=== PATIENT | female | born 1950 | race Caucasian/White ===

== ENCOUNTER 2016-11-04 00:23 | Emergency (ER) | payer OTHER ==
[~2016-11-04] VITALS: Ht 160 cm; Wt 110.7 kg
[2016-11-04 01:02] LABS: Basophils # (auto) 0.1 uL; Basophils % (auto) 1.1 % (0.0-2.0); Eosinophils # (auto) 0.2 uL; Eosinophils % (auto) 1.9 % (0.0-7.0); Hematocrit 37.3 % (36.0-46.0); Hemoglobin 12.5 g/dL (12.2-16.2); Lymphocytes # (auto) 3.3 uL; Mean Corpuscular Hemoglobin 29.8 pg (28.0-32.0); Mean Corpuscular Hgb Conc. 33.5 g/dL (32.0-36.0); Mean Corpuscular Volume 88.9 fL (80.0-100.0); Mean Platelet Volume 7.5 fL (6.9-10.8); Monocytes # (auto) 0.5 uL; Monocytes % (auto) 5.4 % (0.0-12.0); Neutrophils # (auto) 4.6 uL; Neutrophils % (auto) 53.6 % (37.0-80.0); Nucleated Red Blood Cells % 0.1 %; Platelet Count (auto) 270 10^3/uL (140-450); Red Cell Distribution Width 14.3 % (11.8-14.3); White Blood Cell 8.6 10^3/uL (4.4-10.8)
[2016-11-04 01:28] LABS: INR 0.92 (0.9-1.15); Partial Thromboplastin Time 27.6 sec (22.64-33.71)
[2016-11-04 01:40] LABS: Albumin 3.3 g/dL (3.4-5.0); Anion Gap 8 (5-15); Aspartate Aminotransferase 13 U/L (15-37); BUN/Creatinine Ratio 28.6; Blood Urea Nitrogen 26 mg/dL (7-18); Calcium 9.1 mg/dL (8.5-10.1); Carbon Dioxide 28 mmol/L (21-32); Chloride 108 mmol/L (98-107); GFR African American 80 mL/min; GFR Non-African American 66 mL/min; Glucose 128 mg/dL (74-106); Magnesium 2.2 mg/dL (1.6-2.6); Potassium 3.6 mmol/L (3.5-5.1); Sodium 144 mmol/L (136-145)
[2016-11-04 01:48] LABS: Alkaline Phosphatase 105 U/L (45-117); Bilirubin, Total 0.5 mg/dL (0.2-1.0); Total Protein 6.9 g/dL (6.4-8.2)
[2016-11-04 08:56] VITALS: BP 127/57
== END 2016-11-04 09:34 | disposition home or self-care (01) ==
LOC: ER 00:23
DX: R00.2 Palpitations (principal); E03.9 Hypothyroidism, unspecified; Z88.8 Allergy status to other drugs, medicaments and biological substances; M19.90 Unspecified osteoarthritis, unspecified site; K21.9 Gastro-esophageal reflux disease without esophagitis; I10 Essential (primary) hypertension; R42 Dizziness and giddiness
CPT/HCPCS: 36415; 71020; 80053; 83735; 84443; 84484; 85025; 85610; 85730; 93005

== ENCOUNTER 2018-06-22 00:14 | Emergency (ER) | payer OTHER ==
[~2018-06-22] VITALS: Ht 160 cm; Wt 111.6 kg
[2018-06-22 01:06] LABS: Basophils # (auto) 0.1 uL; Basophils % (auto) 0.8 % (0.0-2.0); Eosinophils # (auto) 0.1 uL; Eosinophils % (auto) 1.4 % (0.0-7.0); Hematocrit 38.9 % (36.0-46.0); Hemoglobin 12.8 g/dL (12.2-16.2); Lymphocytes # (auto) 3.1 uL; Lymphocytes % (auto) 36.7 % (10.0-50.0); Mean Corpuscular Hemoglobin 29.2 pg (28.0-32.0); Mean Corpuscular Hgb Conc. 32.8 g/dL (32.0-36.0); Mean Corpuscular Volume 88.9 fL (80.0-100.0); Monocytes # (auto) 0.5 uL; Monocytes % (auto) 6.1 % (0.0-12.0); Neutrophils # (auto) 4.7 uL; Platelet Count (auto) 309 10^3/uL (140-450); Red Blood Cells 4.37 10^6/uL (4.0-5.20); Red Cell Distribution Width 14.4 % (11.8-14.3); White Blood Cell 8.5 10^3/uL (4.4-10.8)
[2018-06-22 01:16] LABS: Alanine Aminotransferase 34 U/L (13-56); Albumin 3.6 g/dL (3.4-5.0); Anion Gap 9 (5-15); Aspartate Aminotransferase 16 U/L (15-37); BUN/Creatinine Ratio 22.9; Blood Urea Nitrogen 32 mg/dL (7-18); Calcium 9.2 mg/dL (8.5-10.1); Carbon Dioxide 25 mmol/L (21-32); Chloride 105 mmol/L (98-107); GFR African American 49 mL/min; GFR Non-African American 40 mL/min; Glucose 150 mg/dL (74-106); Potassium 3.6 mmol/L (3.5-5.1); Sodium 139 mmol/L (136-145)
[2018-06-22 01:20] LABS: Alkaline Phosphatase 100 U/L (45-117); Bilirubin, Total 0.3 mg/dL (0.2-1.0); Total Protein 7.3 g/dL (6.4-8.2)
[2018-06-22 04:53] VITALS: BP 121/75
== END 2018-06-22 05:24 | disposition home or self-care (01) ==
LOC: ER 00:19
DX: R00.2 Palpitations (principal); R06.02 Shortness of breath; T50.995A Adverse effect of other drugs, medicaments and biological substances, initial encounter; M19.90 Unspecified osteoarthritis, unspecified site; K21.9 Gastro-esophageal reflux disease without esophagitis; I10 Essential (primary) hypertension; Z88.8 Allergy status to other drugs, medicaments and biological substances; Z90.49 Acquired absence of other specified parts of digestive tract; Y92.89 Other specified places as the place of occurrence of the external cause
CPT/HCPCS: 36415; 71046; 80053; 84484; 85025; 93005

== ENCOUNTER 2018-07-05 11:45 | Emergency (ER) | payer OTHER ==
[~2018-07-05] VITALS: Ht 160 cm; Wt 111.1 kg
[2018-07-05] MEDS ORDERED: LORazepam 2MG/ML-1ML VIAL IV ONE (12:00)
[2018-07-05 12:27] LABS: Basophils # (auto) 0.1 uL; Basophils % (auto) 0.9 % (0.0-2.0); Eosinophils # (auto) 0.1 uL; Eosinophils % (auto) 0.9 % (0.0-7.0); Hematocrit 39.7 % (36.0-46.0); Hemoglobin 13.2 g/dL (12.2-16.2); Lymphocytes # (auto) 2.1 uL; Lymphocytes % (auto) 27.3 % (10.0-50.0); Mean Corpuscular Hemoglobin 29.7 pg (28.0-32.0); Mean Corpuscular Hgb Conc. 33.3 g/dL (32.0-36.0); Mean Corpuscular Volume 89.4 fL (80.0-100.0); Monocytes # (auto) 0.5 uL; Monocytes % (auto) 6.5 % (0.0-12.0); Neutrophils % (auto) 64.4 % (37.0-80.0); Nucleated Red Blood Cells % 0.1 %; Platelet Count (auto) 293 10^3/uL (140-450); Red Blood Cells 4.44 10^6/uL (4.0-5.20); Red Cell Distribution Width 14.2 % (11.8-14.3); White Blood Cell 7.7 10^3/uL (4.4-10.8)
[2018-07-05 12:42] LABS: INR 0.93 (0.9-1.15); Partial Thromboplastin Time 27.2 sec (23.78-33.04)
[2018-07-05 12:45] LABS: Albumin 3.7 g/dL (3.4-5.0); Anion Gap 5 (5-15); Blood Urea Nitrogen 22 mg/dL (7-18); Calcium 9.7 mg/dL (8.5-10.1); Carbon Dioxide 27 mmol/L (21-32); Chloride 108 mmol/L (98-107); Glucose 102 mg/dL (74-106); Magnesium 2.3 mg/dL (1.6-2.6); Potassium 3.8 mmol/L (3.5-5.1); Sodium 140 mmol/L (136-145)
[2018-07-05 12:50] LABS: Alanine Aminotransferase 26 U/L (13-56); Alkaline Phosphatase 101 U/L (45-117); Aspartate Aminotransferase 14 U/L (15-37); BUN/Creatinine Ratio 22.7; Bilirubin, Total 0.4 mg/dL (0.2-1.0); GFR African American 74 mL/min; GFR Non-African American 61 mL/min; Total Protein 7.2 g/dL (6.4-8.2)
[2018-07-05 14:45] VITALS: BP 123/70
== END 2018-07-05 17:24 | disposition home or self-care (01) ==
LOC: EDBD 11:45 → ER 11:45
DX: F41.9 Anxiety disorder, unspecified (principal); G89.29 Other chronic pain; M54.9 Dorsalgia, unspecified; M47.892 Other spondylosis, cervical region; I10 Essential (primary) hypertension; E11.9 Type 2 diabetes mellitus without complications; K21.9 Gastro-esophageal reflux disease without esophagitis; M19.90 Unspecified osteoarthritis, unspecified site; Z98.51 Tubal ligation status; Z90.49 Acquired absence of other specified parts of digestive tract; Z90.89 Acquired absence of other organs; Z86.73 Personal history of transient ischemic attack (TIA), and cerebral infarction without residual deficits; Z88.8 Allergy status to other drugs, medicaments and biological substances
CPT/HCPCS: 36415; 71045; 72125; 80053; 83735; 84484; 85025; 85610; 85730; 93005; 94761; 96374; 99284; J2060

== ENCOUNTER 2018-07-23 17:32 | Emergency (ER) | payer OTHER ==
[~2018-07-23] VITALS: Ht 160 cm; Wt 112.0 kg
[2018-07-23 21:12] VITALS: BP 139/75
[2018-07-23] MEDS ORDERED: ACETAMINOPHEN 325 MG TAB PO ONE (22:45)
== END 2018-07-23 23:09 | disposition home or self-care (01) ==
LOC: ER 17:33
DX: R51 Headache (principal); M19.90 Unspecified osteoarthritis, unspecified site; E11.9 Type 2 diabetes mellitus without complications; K21.9 Gastro-esophageal reflux disease without esophagitis; E78.5 Hyperlipidemia, unspecified; I10 Essential (primary) hypertension; Z86.73 Personal history of transient ischemic attack (TIA), and cerebral infarction without residual deficits; Z90.49 Acquired absence of other specified parts of digestive tract; Z98.51 Tubal ligation status
CPT/HCPCS: 70450

== ENCOUNTER 2018-11-14 13:48 | Emergency (ER) | payer OTHER ==
[~2018-11-14] VITALS: Ht 160 cm; Wt 112.0 kg
[2018-11-14 16:38] VITALS: BP 118/74
[2018-11-14] MEDS ORDERED: KETOROLAC TROMETH 60MG/2ML VIAL IM ONE (17:15)
== END 2018-11-14 18:08 | disposition home or self-care (01) ==
LOC: ER 13:48
DX: M54.2 Cervicalgia (principal); M54.5 Low back pain; G89.29 Other chronic pain; M19.90 Unspecified osteoarthritis, unspecified site; K21.9 Gastro-esophageal reflux disease without esophagitis; E78.5 Hyperlipidemia, unspecified; I10 Essential (primary) hypertension; Z88.8 Allergy status to other drugs, medicaments and biological substances; Z86.73 Personal history of transient ischemic attack (TIA), and cerebral infarction without residual deficits; Z90.49 Acquired absence of other specified parts of digestive tract; Z98.51 Tubal ligation status
CPT/HCPCS: 93005; 96372; 99283; J1885

== ENCOUNTER 2020-04-29 12:05 | Inpatient (IN) | payer OTHER ==
[~2020-04-29] VITALS: Ht 160 cm; Wt 105.3 kg
[2020-04-29] MEDS ORDERED: SODIUM CHLORIDE 0.9% 1,000 ML IV ONE (12:45)
[2020-04-29 13:05] LABS: Basophils # (auto) 0.1 10 ^3/uL (0-0.2); Basophils % (auto) 0.7 % (0.0-2.0); Eosinophils # (auto) 0.1 10 ^3/uL (0-0.8); Eosinophils % (auto) 1.4 % (0.0-7.0); Hematocrit 36.1 % (36.0-46.0); Hemoglobin 12.2 g/dL (12.2-16.2); Lymphocytes # (auto) 2.4 10 ^3/uL (0.4-5.4); Lymphocytes % (auto) 30.3 % (10.0-50.0); Mean Corpuscular Hemoglobin 30.2 pg (28.0-32.0); Mean Corpuscular Hgb Conc. 33.7 g/dL (32.0-36.0); Mean Corpuscular Volume 89.8 fL (80.0-100.0); Monocytes # (auto) 0.4 10 ^3/uL (0-1.3); Neutrophils % (auto) 62.6 % (37.0-80.0); Platelet Count (auto) 311 10^3/uL (140-450); Red Blood Cells 4.02 10^6/uL (4.0-5.20); Red Cell Distribution Width 13.8 % (11.8-14.3); White Blood Cell 7.9 10^3/uL (4.4-10.8)
[2020-04-29 13:24] LABS: Albumin 3.2 g/dL (3.4-5.0); Anion Gap 6 (5-15); Blood Urea Nitrogen 20 mg/dL (7-18); Calcium 9.2 mg/dL (8.5-10.1); Carbon Dioxide 27 mmol/L (21-32); Chloride 107 mmol/L (98-107); Glucose 168 mg/dL (74-106); Potassium 3.5 mmol/L (3.5-5.1); Sodium 140 mmol/L (136-145)
[2020-04-29 13:29] LABS: Alanine Aminotransferase 20 U/L (13-56); Alkaline Phosphatase 89 U/L (45-117); Aspartate Aminotransferase 15 U/L (15-37); BUN/Creatinine Ratio 15.7; Bilirubin, Total 0.3 mg/dL (0.2-1.0); GFR African American 54 mL/min; GFR Non-African American 45 mL/min; Total Protein 6.8 g/dL (6.4-8.2)
[2020-04-29 14:09] LABS: Urine Bacteria FEW /hpf (None Seen); Urine Blood Negative /uL (Negative); Urine Specific Gravity 1.008 (1.001-1.035); Urine WBC 3 /hpf (0 - 5)
[2020-04-29] MEDS ORDERED: cefTRIAXone 1GM/50ML D5W 50 ML IV ONE (15:15)
[2020-04-29] MEDS ORDERED: ONDANSETRON HCL 4 MG/2 ML VIAL IV PRN (16:15)
[2020-04-29] MEDS ORDERED: NITROGLYCERIN 0.4 MG SL TAB SL PRN (16:15)
[2020-04-29] MEDS ORDERED: HYDROcodone-ACET 5/325MG TAB PO PRN (16:15)
[2020-04-29] MEDS ORDERED: MORPHINE SULF INJ 2 MG/ML SYRINGE 1ML IV PRN ×2 (16:15)
[2020-04-29] MEDS ORDERED: LORA-655 PO (16:27)
[2020-04-29] MEDS: ACETAMINOPHEN 500 MG TAB PO PRN (16:31)
[2020-04-29 16:40] LABS: CRP High Sensitivity 0.59 mg/dL (< 0.3)
[2020-04-29] MEDS: LORazepam 0.5 MG TAB PO PRN (16:41)
[2020-04-29] MEDS ORDERED: PANT40T PO (18:07)
[2020-04-29] MEDS ORDERED: LISI-646 PO (18:07)
[2020-04-29] MEDS ORDERED: HYDR25TA5 PO (18:07)
[2020-04-29 21:00] VITALS: BP 145/72
[2020-04-29] MEDS ORDERED: LORazepam 2MG/ML-1ML VIAL IV PRN (22:00)
[2020-04-30 05:00] VITALS: BP 120/68
[2020-04-30] MEDS: LORazepam 0.5 MG TAB PO PRN (06:21)
[2020-04-30] MEDS: ACETAMINOPHEN 500 MG TAB PO PRN (06:22)
[2020-04-30 08:00] VITALS: BP 123/53
[2020-04-30 09:00] VITALS: BP 123/53
[2020-04-30] MEDS: FAMOTIDINE 20 MG TAB PO SCH (09:26)
[2020-04-30] MEDS: ASPirin 81 mg TAB PO SCH (09:26)
[2020-04-30] MEDS ORDERED: ASPirin-EC 81 mg tab PO SCH (10:00)
[2020-04-30] MEDS ORDERED: HCTZ 25 MG TAB PO ONE (11:15)
[2020-04-30] MEDS ORDERED: LORazepam 2MG/ML-1ML VIAL IV ONE (11:15)
[2020-04-30] MEDS ORDERED: LISINOPRIL 20 MG TAB PO ONE (11:15)
[2020-04-30 13:00] VITALS: BP 130/78
[2020-04-30 22:16] VITALS: BP 102/49
[2020-05-01 05:14] VITALS: BP 111/59
[2020-05-01 05:50] LABS: Basophils # (auto) 0.1 10 ^3/uL (0-0.2); Basophils % (auto) 0.7 % (0.0-2.0); Eosinophils # (auto) 0.1 10 ^3/uL (0-0.8); Eosinophils % (auto) 1.5 % (0.0-7.0); Hematocrit 36.4 % (36.0-46.0); Hemoglobin 12.4 g/dL (12.2-16.2); Lymphocytes # (auto) 3.2 10 ^3/uL (0.4-5.4); Lymphocytes % (auto) 39.2 % (10.0-50.0); Mean Corpuscular Hemoglobin 30.7 pg (28.0-32.0); Mean Corpuscular Hgb Conc. 34.1 g/dL (32.0-36.0); Monocytes # (auto) 0.5 10 ^3/uL (0-1.3); Monocytes % (auto) 6.2 % (0.0-12.0); Neutrophils # (auto) 4.3 10 ^3/uL (1.6-8.6); Neutrophils % (auto) 52.4 % (37.0-80.0); Nucleated Red Blood Cells % 0.1 %; Platelet Count (auto) 299 10^3/uL (140-450); Red Blood Cells 4.04 10^6/uL (4.0-5.20); Red Cell Distribution Width 14.2 % (11.8-14.3); White Blood Cell 8.1 10^3/uL (4.4-10.8)
[2020-05-01 06:08] LABS: BUN/Creatinine Ratio 22.1; Calcium 9.5 mg/dL (8.5-10.1)
[2020-05-01] MEDS: LORazepam 0.5 MG TAB PO PRN ×2 (06:47→14:33)
[2020-05-01 09:00] VITALS: BP 95/54
[2020-05-01] MEDS: ASPirin 81 mg TAB PO SCH (09:33)
[2020-05-01] MEDS: FAMOTIDINE 20 MG TAB PO SCH (09:33)
[2020-05-01] MEDS: ACETAMINOPHEN 500 MG TAB PO PRN (09:34)
[2020-05-01] MEDS ORDERED: LISINOPRIL 20 MG TAB PO SCH (10:00)
[2020-05-01] MEDS ORDERED: HCTZ 25 MG TAB PO SCH (10:00)
[2020-05-01 13:00] VITALS: BP 95/48
[2020-05-01 15:42] VITALS: BP 95/54
[2020-05-01 17:00] VITALS: BP 98/58
== END 2020-05-01 17:24 | disposition home or self-care (01) | DRG 552 ==
LOC: EDBD 12:05 → ER 12:05 → TELE 16:06 → TELE-EAST 20:21 → TELE-CENTR 04-30 14:47
PROVIDERS: ADMIT Nurse Practitioner Acute Care; ATTEND Internal Medicine Nephrology
DX: M47.22 Other spondylosis with radiculopathy, cervical region (principal); N17.9 Acute kidney failure, unspecified; N39.0 Urinary tract infection, site not specified; Z68.41 Body mass index [BMI] 40.0-44.9, adult; R51.9 Headache, unspecified; E11.21 Type 2 diabetes mellitus with diabetic nephropathy; M79.7 Fibromyalgia; M48.02 Spinal stenosis, cervical region; M06.9 Rheumatoid arthritis, unspecified; E11.22 Type 2 diabetes mellitus with diabetic chronic kidney disease; I12.9 Hypertensive chronic kidney disease with stage 1 through stage 4 chronic kidney disease, or unspecified chronic kidney disease; G56.00 Carpal tunnel syndrome, unspecified upper limb; K21.9 Gastro-esophageal reflux disease without esophagitis; M62.838 Other muscle spasm; Z20.822 Contact with and (suspected) exposure to COVID-19; R53.1 Weakness; E66.01 Morbid (severe) obesity due to excess calories; E78.5 Hyperlipidemia, unspecified; F41.0 Panic disorder [episodic paroxysmal anxiety]; Z79.82 Long term (current) use of aspirin; Z81.8 Family history of other mental and behavioral disorders; Z85.3 Personal history of malignant neoplasm of breast; Z86.73 Personal history of transient ischemic attack (TIA), and cerebral infarction without residual deficits; Z88.8 Allergy status to other drugs, medicaments and biological substances; N18.2 Chronic kidney disease, stage 2 (mild)
CPT/HCPCS: 36415; 70450; 70551; 71046; 72125; 80048; 80053; 80061; 81001; 83036; 83735; 84484; 85025; 85652; 86141; 87426; 93005; 93306; 93886; 96361; 96365; G0378; J0696

== ENCOUNTER → 2021-06-12 | Emergency (ER) | payer OTHER ==
[~2021-06-12] VITALS: Ht 160 cm; Wt 106.6 kg
[~2021-06-12] MED LIST: LORA-655 PO; PANT40T PO
[2021-06-12 15:43] LABS: Basophils # (auto) 0.1 10 ^3/uL (0-0.2); Basophils % (auto) 0.6 % (0.0-2.0); Eosinophils # (auto) 0.1 10 ^3/uL (0-0.8); Eosinophils % (auto) 0.8 % (0.0-7.0); Hematocrit 41.6 % (36.0-46.0); Hemoglobin 13.8 g/dL (12.2-16.2); Lymphocytes # (auto) 3.1 10 ^3/uL (0.4-5.4); Lymphocytes % (auto) 31.6 % (10.0-50.0); Mean Corpuscular Hemoglobin 30.1 pg (28.0-32.0); Mean Corpuscular Hgb Conc. 33.2 g/dL (32.0-36.0); Mean Corpuscular Volume 90.9 fL (80.0-100.0); Monocytes # (auto) 0.6 10 ^3/uL (0-1.3); Monocytes % (auto) 6.1 % (0.0-12.0); Neutrophils % (auto) 60.9 % (37.0-80.0); Nucleated Red Blood Cells % 0.2 %; Red Blood Cells 4.58 10^6/uL (4.0-5.20); Red Cell Distribution Width 14.1 % (11.8-14.3); White Blood Cell 9.8 10^3/uL (4.4-10.8)
[2021-06-12 15:45] LABS: Albumin 3.2 g/dL (3.4-5.0); Calcium 9.4 mg/dL (8.5-10.1); Potassium 4.6 mmol/L (3.5-5.1)
[2021-06-12 15:50] LABS: Bilirubin, Total 0.3 mg/dL (0.2-1.0); Total Protein 6.8 g/dL (6.4-8.2)
[2021-06-12 19:58] VITALS: BP 145/72
[2021-06-12 20:05] LABS: Urine Bacteria NONE SEEN /hpf (None Seen); Urine Blood 1+ /uL (Negative); Urine Specific Gravity 1.011 (1.001-1.035); Urine WBC <1 /hpf (0 - 5)
== END | disposition home or self-care (01) ==
LOC: ER 14:24
DX: D25.9 Leiomyoma of uterus, unspecified (principal); N93.9 Abnormal uterine and vaginal bleeding, unspecified; I10 Essential (primary) hypertension; E78.5 Hyperlipidemia, unspecified; K21.9 Gastro-esophageal reflux disease without esophagitis; Z90.49 Acquired absence of other specified parts of digestive tract; Z90.89 Acquired absence of other organs; Z79.899 Other long term (current) drug therapy; Z88.8 Allergy status to other drugs, medicaments and biological substances
CPT/HCPCS: 36415; 76830; 76856; 80053; 81001; 85025; 86850; 86900; 86901

== ENCOUNTER 2025-01-03 12:21 | Inpatient (IN) | payer OTHER ==
[~2025-01-03] VITALS: Ht 160 cm; Wt 97.2 kg
--- NOTE | 2025-01-03 13:04 | ED.PDOC ---
History of Present Illness HPI Comments 74 y/o obese F is BIBA from private residence for c/c of headache and weakness and tingling. Significant history for anxiety, asthma, HLD, HTN, and breast cancer. Per EMS personnel report, patient called, endorsing on sudden onset of symptoms after feeding her chickens and then sitting down for a few minutes, this morning. Pain is localized to the posterior side of her head and is commented to radiate down her neck. Weakness and tingling sensations is localized to the her entire left-side. Patient endorses on taking 1x Ativan prescription medication with assistance from her neighbors prior to calling EMS. On scene, patient was hyperventilating on scene, with vitals within normal limit s. No reported recent ailments, injuries, or further pertinent events or history. She denies having any chest pain, shortness of breath, facial droop, vision or speech changes, or further acute symptoms. Chief Complaint: Anxiety Time Seen by MD: 12:23 Primary Care Provider: [facility] Reviewed Notes: Nurses Notes, House Mover Helper Notes, Medications, Allergies Allergies: Coded Allergies: Statins (Verified Allergy, Severe, RASH, 11/24/15) Home Meds Reported Medications Pantoprazole Sodium Sesquihydr (Pantoprazole Sodium) 40 Mg Tab, 1 TAB PO DAILY 04/29/20 Lorazepam (Ativan) 0.5 Mg Tab, 0.25 MG PO TID PRN for ANXIETY, TAB 04/29/20 Information Source: Patient, Emergency Med Personnel Mode of Arrival: EMS Severity: Moderate Timing: Hours Duration: Since onset Prehospital treatment: 12 Lead EKG, Accucheck, Shrink Pit Supervisor, Other (Calming techniques ) Past Medical History PAST MEDICAL HISTORY: Anxiety, Arthritis, Cancer (breast cancer ), GERD, High Lipids, HTN, TIA Surgical History: Appendectomy, BTL, Cholecystectomy, Tonsillectomy, Tubal Ligation PRICE ECONOMIST History: No Pertinent PRICE ECONOMIST History Family History Family History: Reviewed,noncontributory to illness Social History Smoker: Non-Smoker Alcohol: Occasionally Drugs: Denies Drug Use Lives In: Home Constitutional: denies: chills, diaphoresis, fatigue, fever, malaise, sweats, weakness, others EENTM: denies: blurred vision, double vision, ear bleeding, ear discharge, ear drainage, ear pain, ear ringing, eye pain, eye redness, hearing loss, mouth pain, mouth swelling, nasal discharge, nose bleeding, nose congestion, nose pain, photophobia, tearing, throat pain, throat swelling, voice changes, others Respiratory: denies: cough, hemoptysis, orthopnea, SOB at rest, shortness of breath, SOB with excertion, stridor, wheezing, others Cardiovascular: denies: chest pain, dizzy spells, diaphoresis, Dyspnea on exertion, edema, irregular heart beat, left arm pain, lightheadedness, palpitations, PND, syncope, others Gastrointestinal: denies: abdomen distended, abdominal pain, blood streaked bowels, constipated, diarrhea, dysphagia, difficulty swallowing, hematemesis, melena, nausea, poor appetite, poor fluid intake, rectal bleeding, rectal pain, vomiting, others Genitourinary: denies: abnormal vagina bleeding, burning, dyspareunia, dysuria, flank pain, frequency, hematuria, incontinence, pain, , vagina discharge, urgency, others Neurological: reports: headache, tingling, weakness; denies: dizziness, fainting, left sided numbness, left sided weakness, numbness, paresthesia, pre- existing deficit, right sided numbness, right sided weakness, seizure, speech problems, tremors, others Musculoskeletal: denies: back pain, gout, joint pain, joint swelling, muscle pain, muscle stiffness, neck pain, others Integumetry: denies: bruises, change in color, change in hair/nails, dryness, laceration, lesions, lumps, rash, wounds, others Allergic/Immunocompromised: denies: Difficulty Healing, Frequent Infections, Hives, Itching, others Hematologic/Lymphatic: denies: anemia, blood clots, easy bleeding, easy bruising, swollen glands, others Endocrine: denies: excessive hunger, excessive sweating, excessive thirst, excessive urination, flushing, intolerance to cold, intolerance to heat, unexplained weight gain, unexplained weight loss, others Psychiatric: denies: anxiety, bipolar disorder, depression, hopeless, panic disorder, schizophrenia, sleepless, suicidal, others All Other Systems: Reviewed and Negative Physical Exam General Appearance: Moderate Distress HEENT: Normal ENT Inspection, Pharynx Normal, TMs Normal Neck: Full Range of Motion, Non-Tender, Normal, Normal Inspection Respiratory: Chest Non-Tender, Lungs Clear, No Accessory Muscle Use, No Respiratory Distress, Normal Breath Sounds Cardiovascular: No Edema, No JVD, No Murmur, No Gallop, Normal Peripheral Pulses, Regular Rate/Rhythm Breast Exam: Deferred Gastrointestinal: No Organomegaly, Non Tender, No Pulsatile Mass, Normal Bowel Sounds, Soft Genitalia: Deferred Pelvic: Deferred Rectal: Deferred Extremities: No calf tenderness, Normal capillary refill, Normal inspection, Normal range of motion, Non-tender, No pedal edema Musculoskeletal : Apperance: Normal Neurologic: resident intern II-XII nml as Tested, Motor Weakness, Normal Affect, Normal Mood, No Sensory Deficits Cerebellar Function: Normal Reflexes: Normal Skin: Dry, Pallor, Warm Lymphatic: No Adenopathy Was a procedure done? Was a procedure done?: No Differential Dx Considerations may include: anxiety, panic attack, dehydration, electrolyte imbalance, tension headache, migraines, CVA/TIA, intracranial hemorrhaging, among others. X-Ray, Labs, Meds, VS Vital Signs Date Time Temp Pulse Resp B/P (MAP) Pulse Ox O2 Delivery O2 Flow Rate FiO2 01/03/25 13:35 97.4 64 17 139/75 (96) 96 97.4 01/03/25 12:23 98.6 78 22 141/81 97 98.6 Lab Test 01/03/25 13:10 Range/Units White Blood Count 7.5 4.4-10.8 10^3/uL Red Blood Count 4.48 4.0-5.20 10^6/uL Hemoglobin 13.4 12.2-16.2 g/dL Hematocrit 40.2 36.0-46.0 % Mean Corpuscular Volume 89.7 80.0-100.0 fL Mean Corpuscular Hemoglobin 30.0 28.0-32.0 pg Mean Corpuscular Hemoglobin Concent 33.4 32.0-36.0 g/dL Red Cell Distribution Width 14.6 H 11.8-14.3 % Platelet Count 281 140-450 10^3/uL Mean Platelet Volume 7.9 6.9-10.8 fL Neutrophils (%) (Auto) 61.7 37.0-80.0 % Lymphocytes (%) (Auto) 30.8 10.0-50.0 % Monocytes (%) (Auto) 5.6 0.0-12.0 % Eosinophils (%) (Auto) 0.9 0.0-7.0 % Basophils (%) (Auto) 1.0 0.0-2.0 % Neutrophils # (Auto) 4.6 1.6-8.6 10 ^3/uL Lymphocytes # (Auto) 2.3 0.4-5.4 10 ^3/uL Monocytes # (Auto) 0.4 0-1.3 10 ^3/uL Eosinophils # (Auto) 0.1 0-0.8 10 ^3/uL Basophils # (Auto) 0.1 0-0.2 10 ^3/uL Nucleated Red Blood Cells 0.1 % Sodium Level 142 136-145 mmol/L Potassium Level 3.8 3.5-5.1 mmol/L Chloride Level 106 98-107 mmol/L Carbon Dioxide Level 23 20-31 mmol/L Anion Gap 13 5-15 Blood Urea Nitrogen 10 9-23 mg/dL Creatinine 0.85 0.550-1.02 mg/dL Glomerular Filtration Rate Calc 73 >90 mL/min BUN/Creatinine Ratio 11.8 10.0-20.0 Serum Glucose 112 H 74-106 mg/dL Calcium Level 10.1 8.7-10.4 mg/dL [place] [id number] Ph: [phone] DIAGNOSTIC IMAGING Diagnostic Imaging Report : [id number] Signed PATIENT: JENARO GONZALEZ ACCT: [id number] UNIT: [id number] : 1950 LOC: ER ROOM / BED: / AGE / SEX: 74 / F ADM STATUS: REG ER SERVICE 1238 ORDERING PHYSICIAN: MARTINA CASTRO MD PROCEDURE(s): HWOCT - HEAD WITHOUT CONTRAST REASON: weakness ORDER NUMBER(s): [id number], ACCESSION NUMBER(s): [id number] CT HEAD WITHOUT CONTRAST Indication: weakness EXAM DATE: 01/03/2025 12:47 PM COMPARISON: HEAD WITHOUT CONTRAST on DOS: 04/29/20 TECHNIQUE: CT of the head without intravenous contrast. RADIATION DOSE: CTDIvol: 58.57 mGy, DLP: 1051.62 mGy*cm FINDINGS: There is no intracranial hemorrhage. There is no extra-axial fluid, mass, mass effect or midline shift. The ventricles are midline and normal in size. Basilar cisterns are patent. Mild volume loss. Old right basal ganglia lacunar infarcts. Mild periventricular and subcortical white matter chronic microvascular ischemic changes. The paranasal sinuses and mastoids are well-pneumatized. Imaged portion of the orbits are unremarkable. IMPRESSION: No intracranial hemorrhage or mass effect. Old right basal ganglia lacunar infarcts. Mild chronic microvascular ischemic changes. ATED BY: YOLY GAFFNEY MD DICTATED DATE/TIME: 01/03/251314 SIGNED BY: YOLY GAFFNEY MD SIGNED DATE/TIME: 01/03/251314 CC: IV Hep-Lock is being established The CBC and chemistry panel are within normal limits The patient is still having intractable headache. The patient was given tramadol without any relief The patient is being admitted Images Reviewed?: Images reviewed and evaluated by me Time of 1ST Reevaluation: 12:53 Reevaluation 1ST: Unchanged Patient Education/Counseling: Diagnosis, Treatment, Need For Follow Up Family Education/Counseling: No Family Present SEPSIS Sepsis Screen Physician Orders Head Without Contrast (01/03/25 12:38) Urinalysis (01/03/25 12:38) Tramadol Hcl (Ultram) (01/03/25 14:15) Vital Signs Date Time Temp Pulse Resp B/P (MAP) Pulse Ox O2 Delivery O2 Flow Rate FiO2 01/03/25 13:35 97.4 64 17 139/75 (96) 96 97.4 01/03/25 12:23 98.6 78 22 141/81 97 98.6 Laboratory Tests Test 01/03/25 13:10 White Blood Count 7.5 10^3/uL (4.4-10.8) Departure 1 Departure Time of Disposition: 14:17 Impression: Primary Impression: Generalized weakness Additional Impression: Intractable headache Qualified Codes: R51.9 - Headache, unspecified Disposition: 09 ADMITTED INPATIENT Admit to: [facility] Condition: Fair Critical Care Note Critical Care Time?: No Stability Stability form required: Yes Unstable for transfer: Telemetry monitoring (Telemetry monitoring required), ED Physician Assesment (Clinical assesment) Heart Score Heart Score: Heart Score Response (Comments) Value History N/A 0 EKG N/A 0 Age N/A 0 Risk Factors N/A 0 Troponin N/A 0 Total 0 I personally scribed for MARTINA CASTRO MD ([email or web address]) on 01/03/25 at 13:04. Electronically submitted by Kana Lemus ([email or web address]). I personally scribed for MARTINA CASTRO MD ([email or web address]) on 01/03/25 at 13:25. Electronically submitted by Kana Lemus ([email or web address]). MARTINA CASTRO MD Jan 03, 2025 13:04
--- NOTE | 2025-01-03 13:13 | DVH ---
CT HEAD WITHOUT CONTRAST Indication: weakness EXAM DATE: 01/03/2025 12:47 PM COMPARISON: HEAD WITHOUT CONTRAST on DOS: 04/29/20 TECHNIQUE: CT of the head without intravenous contrast. RADIATION DOSE: CTDIvol: 58.57 mGy, DLP: 1051.62 mGy*cm FINDINGS: There is no intracranial hemorrhage. There is no extra-axial fluid, mass, mass effect or midline shift. The ventricles are midline and normal in size. Basilar cisterns are patent. Mild volume loss. Old right basal ganglia lacunar infarcts. Mild periventricular and subcortical white matter chronic micr ovascular ischemic changes. The paranasal sinuses and mastoids are well-pneumatized. Imaged portion of the orbits are unremarkable. IMPRESSION: No intracranial hemorrhage or mass effect. Old right basal ganglia lacunar infarcts. Mild chronic microvascular ischemic changes.
[2025-01-03 13:24] LABS: Hematocrit 40.2 % (36.0-46.0); Hemoglobin 13.4 g/dL (12.2-16.2); Mean Corpuscular Hemoglobin 30.0 pg (28.0-32.0); Mean Corpuscular Volume 89.7 fL (80.0-100.0); Nucleated Red Blood Cells % 0.1 %
[2025-01-03 13:28] LABS: Chloride 106 mmol/L (98-107); Potassium 3.8 mmol/L (3.5-5.1); Sodium 142 mmol/L (136-145)
[2025-01-03 13:29] LABS: Anion Gap 13 (5-15); Carbon Dioxide 23 mmol/L (20-31)
[2025-01-03 13:30] LABS: Calcium 10.1 mg/dL (8.7-10.4)
[2025-01-03 13:34] LABS: BUN/Creatinine Ratio 11.8 (10.0-20.0); Blood Urea Nitrogen 10 mg/dL (9-23)
[2025-01-03 13:36] LABS: Glucose 112 mg/dL (74-106)
[2025-01-03 15:58] LABS: Urine Protein, UAD Negative (Negative)
[2025-01-03 18:05] VITALS: PULSE 65; RESP 19; O2SAT 100
--- NOTE | 2025-01-03 20:59 | DVHHPRES ---
History of Present Illness Resident Creating Document: JAN GILL RESIDENT History of Present Illness 74-year-old female with a PMH of anxiety disorder, panic disorder, asthma, hypertension, hyperlipidemia, breast cancer (diagnosed in 2004, S/P partial mastectomy and radiation, tamoxifen for 5 years), possible TIA event, chronic pain syndrome, has come with chief complaints of numbness and weakness in the left side of her body. Patient reports that she has a herniated disc in her neck, mid and lower back, which causes usual tingling, but today while walking back to her home after feeding her chicken, she felt weakness in her left leg which began to wobble and was followed by warm flushing sensation of her entire body followed by chills, and numbness as well as weakness in the entire left side of the body. She states that she tried to ice her neck but the symptoms worsened and 0.5 Ativan calmed her a bit but the weakness repained for an hour. On inquiry, she reports this event to be different from the anxiety attacks she has had in the past. She denies any slurring of speech, drooping of face, Chest pain, shortness of breath, palpitations, or headache. On inquiry, patient states that she might have had a TIA event in the past, as she was told by her doctor via CT scan that she might have had some ischemic changes in the past. Vitals on admission were stable temp 97.8, HR 65, RR 22, BP 141/81 mmHg and SpO2 99% in room air. On initial evaluation, there was no drooping of the face, speech was clear, sensory motor examination was intact. CT head showed no intracranial hemorrhage/mass, old right basal ganglia lacunar infarcts; mild chronic microvascular ischemic changes. We are admitting the patient for further workup and management. PMH: As stated above PSH: Partial mastectomy Family history: Reviewed, noncontributory to the management of this case Social history: Patient denies ever smoking, drinking alcohol or abusing illicit drugs, uses CBD ointment for back pain Allergies: Statins PCP: Nurse bel Valderrama in [facility] Code status: Full code Review of Systems Constitutional: Yes: Other; No: Fever, Chills, Sweats, Weakness, Malaise Eyes: No: Pain, Vision change, Conjunctivae inflammation, Eyelid inflammation, Other, Redness ENT: No: Ear pain, Ear discharge, Nose pain, Nose discharge, Nose congestion, Mouth pain, Mouth swelling, Throat pain, Throat swelling, Other Respiratory: No: Cough, Dry, Shortness of breath, SOB with excertion, Wheezing, Hemoptysis, Pleuritic Pain, Sputum, Wheezing, Other Cardiovascular: No: Chest Pain, Palpitations, Orthopnea, Paroxysmal Noc. Dyspnea, Edema, Lt Headedness, Other Gastrointestinal: No: Nausea, Vomiting, Abdominal Pain, Diarrhea, Constipation, Melena, Hematochezia, Other Genitourinary: No Dysuria, No Frequency, No Incontinence, No Hematuria, No Retention, No Other Musculoskeletal: No: other, neck pain, shoulder pain, arm pain, back pain, hand pain, leg pain, foot pain Skin: No: Rash, Lesions, Jaundice, Bruising, Other Neurological: Weakness, Numbness, Other; No: Incoordination, Change in speech, Confusion, Seizures Allergies: Coded Allergies: Statins (Verified Allergy, Severe, RASH, 11/24/15) Exam Vital Signs Vital Signs Date Time Temp Pulse Resp B/P (MAP) Pulse Ox O2 Delivery O2 Flow Rate FiO2 01/03/25 18:05 97.8 65 19 142/81 (101) 100 97.8 01/03/25 18:05 Room Air* 0 21 Exam General Appearance: Alert, Oriented X3, Cooperative, Not in acute distress HEENT: Atraumatic, Mucous membranes moist/pink Respiratory: Clear to auscultation, Normal air movement, No added sounds Cardiovascular: Regular rate, Normal S1, Normal S2, No murmurs Abdominal: Active bowel sounds, Soft, no distention, no tenderness Extremities: No edema, Normal pulses, No tenderness/swelling Skin: No Significant rash, except past surgical scars Neuro: Normal speech, sensorimotor deficits none , power 5/5 on all extremities Psych/Mental Status: Mental status NL, slightly anxious Labs/Xrays Labs Test 01/03/25 14:14 01/03/25 13:10 Range/Units Urine Color Light-yellow Yellow Urine Clarity Clear Clear Urine pH 6.5 5.0-9.0 Urine Specific [place] 1.010 1.001-1.035 Urine Protein Negative Negative Urine Ketones Negative Negative Urine Blood Negative Negative /uL Urine Nitrite Negative Negative Urine Bilirubin Negative Negative Urine Urobilinogen Normal Negative mg/dL Urine Leukocyte Esterase Negative Negative /uL Urine RBC 1 0 - 4 /hpf Urine Microscopic WBC 1 0-5 /HPF Urine Squamous Epithelial Cells Few <5 /hpf Urine Bacteria None seen None Seen /hpf Urine Glucose Normal Normal mg/dL White Blood Count 7.5 4.4-10.8 10^3/uL Red Blood Count 4.48 4.0-5.20 10^6/uL Hemoglobin 13.4 12.2-16.2 g/dL Hematocrit 40.2 36.0-46.0 % Mean Corpuscular Volume 89.7 80.0-100.0 fL Mean Corpuscular Hemoglobin 30.0 28.0-32.0 pg Mean Corpuscular Hemoglobin Concent 33.4 32.0-36.0 g/dL Red Cell Distribution Width 14.6 H 11.8-14.3 % Platelet Count 281 140-450 10^3/uL Mean Platelet Volume 7.9 6.9-10.8 fL Neutrophils (%) (Auto) 61.7 37.0-80.0 % Lymphocytes (%) (Auto) 30.8 10.0-50.0 % Monocytes (%) (Auto) 5.6 0.0-12.0 % Eosinophils (%) (Auto) 0.9 0.0-7.0 % Basophils (%) (Auto) 1.0 0.0-2.0 % Neutrophils # (Auto) 4.6 1.6-8.6 10 ^3/uL Lymphocytes # (Auto) 2.3 0.4-5.4 10 ^3/uL Monocytes # (Auto) 0.4 0-1.3 10 ^3/uL Eosinophils # (Auto) 0.1 0-0.8 10 ^3/uL Basophils # (Auto) 0.1 0-0.2 10 ^3/uL Nucleated Red Blood Cells 0.1 % Sodium Level 142 136-145 mmol/L Potassium Level 3.8 3.5-5.1 mmol/L Chloride Level 106 98-107 mmol/L Carbon Dioxide Level 23 20-31 mmol/L Anion Gap 13 5-15 Blood Urea Nitrogen 10 9-23 mg/dL Creatinine 0.85 0.550-1.02 mg/dL Glomerular Filtration Rate Calc 73 >90 mL/min BUN/Creatinine Ratio 11.8 10.0-20.0 Serum Glucose 112 H 74-106 mg/dL Calcium Level 10.1 8.7-10.4 mg/dL SEPSIS Sepsis Screen Date sepsis recognized/suspect: Jan 03, 2025 Time Sepsis recognized/suspect: 1804 Recent Procedure: No On Antibiotic Therapy: No Respiratory Rate >20: No Heart Rate >90: No Temp<36 C (96.8 F) or >38.3 C: No SBP <90 or MAP <65 mmHG: No New Acute Mental Status Change: No Is the patient on CPAP, BIPAP,: No Physician Orders Heplock Iv (01/03/25 ) Admit (01/03/25 20:46) Code Status (01/03/25 20:46) Ondansetron Hcl (Zofran) (01/03/25 21:00) Complete Blood Count (01/04/25 04:00) Comprehensive Metabolic Panel (01/04/25 04:00) Cardiac Diet-2gna,Lofat,Lochol (01/04/25 Breakfast) Pt Request For Service (01/03/25 20:46) Echo 2d Mode Cardiac Dop (01/03/25 20:46) Condition: Unstable (01/03/25 20:46) Lovenox 40mg (01/03/25 21:00) Electrocardigram (01/03/25 20:46) Carotid Duplx W Color Dop (01/03/25 20:46) Aspirin Tablet (01/03/25 21:00) Aspirin Tablet (01/04/25 10:00) Lisinopril Tablet (Zestril Tablet) (01/04/25 10:00) Albuterol Medneb (Ventolin Medneb) (01/03/25 21:00) Albuterol Medneb (Ventolin Medneb) (01/03/25 21:00) Hydrocodone-Acet 5/325mg Tab ([place] 5/32 (01/03/25 21:00) Hydrocodone-Acet 5/325mg Tab ([place] 5/32 (01/03/25 21:00) Baclofen Tablet (Liorisal Tablet) (01/03/25 21:00) Baclofen Tablet (Liorisal Tablet) (01/03/25 21:00) Acetaminophen Tablet (Tylenol Tablet) (01/03/25 21:00) Hydromorphone Injection (Dilaudid Inject (01/03/25 21:00) * Neurology Consult (01/03/25 20:46) Magnesium (01/03/25 20:46) Hepatic Panel (01/03/25 20:46) Vital Signs Date Time Temp Pulse Resp B/P (MAP) Pulse Ox O2 Delivery O2 Flow Rate FiO2 01/03/25 18:05 97.8 65 19 142/81 (101) 100 97.8 01/03/25 18:05 65 19 100 Room Air* 0 21 01/03/25 13:35 97.4 64 17 139/75 (96) 96 97.4 Laboratory Tests Test 01/03/25 13:10 White Blood Count 7.5 10^3/uL (4.4-10.8) Medications Medications Dose Ordered Sig/[place] Route Start Time Stop Time Status Last Admin Dose Admin Tramadol HCl 50 mg ONCE ONCE PO 01/03/25 14:15 01/03/25 14:16 DC 01/03/25 14:20 50 MG Assessment/Plan Assessment/Plan #Possible TIA event # Ruled out acute stroke - EKG - tele monitor - echo - ABCD 2 score 3 - aspirin 325 mg p.o. once and 81 mg p.o. daily - atorvastatin on hold as patient is allergic to statins - physical therapy - neurology consult - CT head shows: no intracranial hemorrhage/mass, old right basal ganglia lacunar infarcts; mild chronic microvascular ischemic changes. - carotid Doppler shows no hemodynamically significant stenosis noted in the right or left carotid system - UA normal - UDS - IV Zofran 4 mg q.4 PRN - IV NS 0.9% - magnesium 2.0 - TSH 2.16 - BNP 18.99 - chest x-ray no acute cardiopul abnormality #Hypertensive heart disease with poss diastolic dysfunction - continue home medication lisinopril 20 mg p.o. daily #Asthma, not under acute exacerbation -albuterol 2.5 mg q.4 PRN #Chronic back pain - tramadol HCl 50 mg p.o. once - baclofen 10 mg p.o. daily - pain management with: Acetaminophen 650 mg q.6 PRN for mild pain [place] 5/325 mg q.4 PRN for moderate pain Dilaudid 0.25 mg q.4 PRN for severe pain #Morbid obesity, BMI 38.3 kg/m2 - patient counseled extensively regarding need of weight loss, exercise, dietary modification and healthy lifestyle for of 8 minutes #History of anxiety and panic disorder -monitor DVT prophylaxis: Lovenox 40 mg SC daily Diet: cardiac diet Goals of care discussed with the patient for more than 27 minutes: Full code status Case discussed with Dr. Rangel, patient and nurse. Plan discussed with: Patient My Orders Orders - JAN GILL RESIDENT Procedure Category Date Status Time Admit ADMIT 01/03/25 Transmitted 20:46 Code Status CODE 01/03/25 Transmitted 20:46 Ondansetron Hcl PHA 01/03/25 Transmitted (Zofran) 21:00 Complete Blood Count LAB 01/04/25 Verified 04:00 Comprehensive LAB 01/04/25 Verified Metabolic Panel 04:00 Cardiac DIET 01/04/25 Transmitted Diet-2gna,Lofat,Lochol Breakfast Pt Request For Service PT 01/03/25 Transmitted 20:46 Echo 2d Mode Cardiac US 01/03/25 Transmitted DOP 20:46 Condition: Unstable MARILUZ 01/03/25 Transmitted 20:46 Lovenox 40mg PHA 01/03/25 Transmitted 21:00 Electrocardigram EKG 01/03/25 Transmitted 20:46 Carotid Duplx W Color US 01/03/25 Transmitted DOP 20:46 Aspirin Tablet PHA 01/03/25 Transmitted 21:00 Aspirin Tablet PHA 01/04/25 Transmitted 10:00 Lisinopril Tablet PHA 01/04/25 Transmitted (Zestril Tablet) 10:00 Albuterol Medneb PHA 01/03/25 Transmitted (Ventolin Medneb) 21:00 Albuterol Medneb PHA 01/03/25 Transmitted (Ventolin Medneb) 21:00 Hydrocodone-Acet PHA 01/03/25 Transmitted 5/325mg Tab ([place] 21:00 Hydrocodone-Acet PHA 01/03/25 Transmitted 5/325mg Tab ([place] 21:00 Baclofen Tablet PHA 01/03/25 Transmitted (Liorisal Tablet) 21:00 Baclofen Tablet PHA 01/03/25 Transmitted (Liorisal Tablet) 21:00 Acetaminophen Tablet PHA 01/03/25 Transmitted (Tylenol Tablet) 21:00 Hydromorphone PHA 01/03/25 Transmitted Injection (Dilaudid 21:00 * Neurology Consult CONS 01/03/25 Transmitted 20:46 Magnesium LAB 01/03/25 Logged 20:46 Hepatic Panel LAB 01/03/25 Logged 20:46 Date of Service: Jan 04, 2025 Billing Provider: TUCKER RANGEL MD Common Visit Codes: [id number] INP/OBS CARE (HIGH) Secondary Visit Codes: [id number] CARE PLAN 30 MINUTES JAN GILL RESIDENT Jan 03, 2025 20:59 TRE GUEVARA RESIDENT Jan 04, 2025 04:53
[2025-01-03] MEDS ORDERED: ONDANSETRON HCL 4 MG/2 ML VIAL IV PRN (21:00)
[2025-01-03] MEDS ORDERED: ALBUTEROL SULF 2.5 MG/0.5ML(0.5%) NEB SOLN NEB PRN (21:00)
[2025-01-03] MEDS ORDERED: HYDROcodone-ACET 5/325MG TAB PO PRN (21:00)
[2025-01-03] MEDS ORDERED: HYDROmorphone HCL 2 MG/ML VL/or syr IV PRN (21:00)
[2025-01-03] MEDS ORDERED: ACETAMINOPHEN 325 MG TAB PO PRN (21:00)
[2025-01-03 21:04] VITALS: O2SAT 98
[2025-01-03] MEDS: ALBUTEROL SULF 2.5 MG/0.5ML(0.5%) NEB SOLN ONE (21:05)
[2025-01-03] MEDS: BACLOFEN 10 MG TAB PO ONE (21:15)
[2025-01-03] MEDS: HYDROcodone-ACET 5/325MG TAB PO ONE (21:16)
[2025-01-03 21:19] LABS: Alanine Aminotransferase 15.0 U/L (7-40); Albumin 4.4 g/dL (3.2-4.8); Alkaline Phosphatase 114.0 U/L (46-116); Bilirubin, Direct 0.1 mg/dL (<0.3); Magnesium 2.0 mg/dL (1.6-2.6); Total Protein 7.1 g/dL (5.7-8.2)
[2025-01-03 21:20] LABS: Bilirubin, Total 0.5 mg/dL (0.2-1.0)
[2025-01-03 21:42] VITALS: PULSE 62; RESP 16; TEMP 98; O2SAT 98
--- NOTE | 2025-01-03 22:03 | DVH ---
EXAM: US CAROTID DUPLX W COLOR DOP INDICATION: possible tia event, eval for stenosis COMPARISON: None TECHNIQUE: Grayscale, pulsed Doppler and color Doppler ultrasound examination of the carotid and vertebral artery systems bilaterally was performed. Study is done in accordance with NASCET criteria. FINDINGS: [RIGHT SIDE]: The peak systolic velocities are 54 cm/s in the distal CCA, 70 cm/s in the ICA. ICA/CCA ratio is 1.3. There is appropriate antegrade flow in the right vertebral artery. [LEFT SIDE]: The peak systolic velocities are 56 cm/s in the distal CCA, 85 cm/s in the ICA. ICA/CCA ratio is 1.5. There is appropriate antegrade flow in the left vertebral artery. IMPRESSION: 1. No hemodynamically significant stenosis noted in the right carotid system. No hemodynamically significant stenosis noted in the left carotid system.
[2025-01-03] MEDS: ALBUTEROL SULF 2.5 MG/0.5ML(0.5%) NEB SOLN NEB ONE (22:47)
[2025-01-03 22:59] VITALS: BP 141/69; PULSE 53; RESP 17; RESP 18; TEMP 97.7; O2SAT 97
[2025-01-03 23:00] VITALS: BP 141/69; PULSE 56; RESP 17; TEMP 97.7; O2SAT 96
[2025-01-03] MEDS: ENOXAPARIN SOD 40 MG/0.4 ML SYRINGE SC SCH (23:32)
[2025-01-04] VITALS (12 sets, daily range): BP systolic 110–142; BP diastolic 43–77; PULSE 53–65; RESP 16–18; TEMP 97.6–98.4; O2SAT 95–98
[2025-01-04] MEDS ORDERED: MELO7.5T7 PO (01:14)
[2025-01-04] MEDS: SODIUM CHLORIDE 0.9% 1,000 ML IV ONE (02:37)
--- NOTE | 2025-01-04 02:46 | DVH ---
CHEST RADIOGRAPH Indication: Shortness of breath Technique: 1 view Comparison: 04/29/2020 FINDINGS: Lines and Tubes: External leads. Lungs/Pleura: No focal consolidation, pleural effusion or pneumothorax. Cardiomediastinum: Unremarkable. Other: No acute osseous abnormality. IMPRESSION: 1. No acute cardiopulmonary abnormality.
[2025-01-04 04:36] LABS: Hematocrit 35.5 % (36.0-46.0); Hemoglobin 11.9 g/dL (12.2-16.2); Mean Corpuscular Hemoglobin 30.2 pg (28.0-32.0); Mean Corpuscular Volume 89.8 fL (80.0-100.0); Nucleated Red Blood Cells % 0.1 %
[2025-01-04 04:56] LABS: Alanine Aminotransferase 12 U/L (7-40); Alkaline Phosphatase 94 U/L (46-116); Anion Gap 8 (5-15); BUN/Creatinine Ratio 16.0 (10.0-20.0); Blood Urea Nitrogen 12 mg/dL (9-23); Calcium 9.4 mg/dL (8.7-10.4); Carbon Dioxide 26 mmol/L (20-31); Glucose 86 mg/dL (74-106); Potassium 3.8 mmol/L (3.5-5.1); Sodium 143 mmol/L (136-145)
[2025-01-04 04:57] LABS: Total Protein 5.7 g/dL (5.7-8.2)
[2025-01-04 04:58] LABS: Albumin 3.5 g/dL (3.2-4.8); Bilirubin, Total 0.7 mg/dL (0.2-1.0)
[2025-01-04 05:05] LABS: Chloride 109 mmol/L (98-107)
[2025-01-04] MEDS ORDERED: [UNRECOGNIZED DRUG - CODE] PO (07:34)
[2025-01-04] MEDS ORDERED: MAGN100T9 PO (07:56)
[2025-01-04] MEDS ORDERED: METH-1181 PO (07:56)
[2025-01-04] MEDS ORDERED: OMEG1400 PO (07:56)
[2025-01-04] MEDS ORDERED: THEA100C PO (07:56)
[2025-01-04] MEDS ORDERED: CHOL20007 PO (07:56)
[2025-01-04] MEDS ORDERED: POM (07:56)
[2025-01-04] MEDS ORDERED: LISI20TA56 PO (07:56)
[2025-01-04] MEDS ORDERED: LORA-1121 PO (07:58)
[2025-01-04] MEDS: ASPirin-EC 81 mg tab PO SCH (09:11)
[2025-01-04] MEDS: BACLOFEN 10 MG TAB PO PRN (09:11)
[2025-01-04] MEDS: LISINOPRIL 20 MG TAB PO SCH (09:12)
--- NOTE | 2025-01-04 13:23 | DVHPN2 ---
Subjective no weakness Reviewed: H&P Changes from previous H/P or p: No Changes Eyes: No Pain, No Vision change, No Conjunctivae inflammation, No Eyelid inflammation, No Other, No Redness ENT: No Ear pain, No Ear discharge, No Nose pain, No Nose discharge, No Nose congestion, No Mouth pain, No Mouth swelling, No Throat pain, No Throat swelling, No Other Cardiovascular: No Chest Pain, No Palpitations, No Orthopnea, No Paroxysmal Noc. Dyspnea, No Edema, No Lt Headedness, No Other Respiratory: No Cough, No Dry, No Shortness of breath, No SOB with excertion, No Wheezing, No Hemoptysis, No Pleuritic Pain, No Sputum, No Other Gastrointestinal: No Nausea, No Vomiting, No Abdominal Pain, No Diarrhea, No Constipation, No Melena, No Hematochezia, No Other Genitourinary: No Dysuria, No Frequency, No Incontinence, No Hematuria, No Retention, No Other Musculoskeletal: No other, No neck pain, No shoulder pain, No arm pain, No back pain, No hand pain, No leg pain, No foot pain Skin: No Rash, No Lesions, No Jaundice, No Bruising, No Other Objective Vitals Vital Signs Date Time Temp Pulse Resp B/P (MAP) Pulse Ox O2 Delivery O2 Flow Rate FiO2 01/04/25 13:00 98.1 60 16 129/60 (83) 98 98.1 01/04/25 10:00 Room Air* 0 21 Intake/Output Intake and Output 01/04/25 07:00 Intake Total 1000 ml Balance 1000 ml IV Total 1000 ml General Appearance: Alert, Oriented X3 HEENT: Atraumatic Cardiovascular: Regular rate, Normal S1, Normal S2 Abdomen: Normal bowel sounds Medications Current Medications Medications Dose Ordered Sig/[place] Route Start Time Stop Time Status Last Admin Dose Admin Ondansetron HCl 4 mg Q4HP PRN IV 01/03/25 21:00 Enoxaparin Sodium 40 mg DAILY SC 01/03/25 23:00 01/04/25 09:13 40 MG Lisinopril 20 mg DAILY PO 01/04/25 10:00 01/04/25 09:12 20 MG Albuterol 2.5 mg Q6HPRN PRN NEB 01/03/25 21:00 Acetaminophen/ Hydrocodone Bitart 1 tab Q4HPRN PRN PO 01/03/25 21:00 Baclofen 10 mg Q8HP PRN PO 01/03/25 21:00 01/04/25 09:11 10 MG Acetaminophen 650 mg Q4HP PRN PO 01/03/25 21:00 Hydromorphone HCl 0.25 mg Q6HPRN PRN IV 01/03/25 21:00 Aspirin 81 mg DAILY PO 01/04/25 10:00 01/04/25 09:11 81 MG Laboratory Results Laboratory Tests 01/04/25 03:49 Chemistry Test 01/04/25 03:49 Albumin 3.5 g/dL (3.2-4.8) Calcium Level 9.4 mg/dL (8.7-10.4) Total Protein 5.7 g/dL (5.7-8.2) Cardiac Markers Test 01/03/25 13:38 B-Type Natriuretic Peptide 18.99 pg/mL (0-100) LFT Test 01/04/25 03:49 Alanine Aminotransferase (ALT) 12 U/L (7-40) Alkaline Phosphatase 94 U/L (46-116) Aspartate Amino Transferase (AST) 15 U/L (13-40) Total Bilirubin 0.7 mg/dL (0.2-1.0) HgA1c, TSH Test 01/03/25 13:38 Thyroid Stimulating Hormone (TSH) 2.16 uIU/mL (0.55-4.78) Urinalysis Test 01/03/25 14:14 Urine Color Light-yellow (Yellow) Urine Clarity Clear (Clear) Urine pH 6.5 (5.0-9.0) Urine Specific [place] 1.010 (1.001-1.035) Urine Protein Negative (Negative) Urine Ketones Negative (Negative) Urine Blood Negative /uL (Negative) Urine Nitrite Negative (Negative) Urine Bilirubin Negative (Negative) Urine Urobilinogen Normal mg/dL (Negative) Urine Leukocyte Esterase Negative /uL (Negative) Urine RBC 1 /hpf (0 - 4) Urine Microscopic WBC 1 /HPF (0-5) Urine Squamous Epithelial Cells Few /hpf (<5) Urine Bacteria None seen /hpf (None Seen) Urine Glucose Normal mg/dL (Normal) Assessment/Plan Assessment/Plan #Possible TIA event # Ruled out acute stroke Order MRI brain and C spine Pending neuro eval aspirin and statin #Hypertensive heart disease with poss diastolic dysfunction - continue home medication lisinopril 20 mg p.o. daily #Asthma, not under acute exacerbation -albuterol 2.5 mg q.4 PRN #Chronic back pain - tramadol HCl 50 mg p.o. once - baclofen 10 mg p.o. daily - pain management with: Acetaminophen 650 mg q.6 PRN for mild pain [place] 5/325 mg q.4 PRN for moderate pain Dilaudid 0.25 mg q.4 PRN for severe pain #Morbid obesity, BMI 38.3 kg/m2 - patient counseled extensively regarding need of weight loss, exercise, dietary modification and healthy lifestyle for of 8 minutes #History of anxiety and panic disorder -monitor Plan discussed with: Patient Date of Service: Jan 04, 2025 Billing Provider: ELVIS MENEZES MD Common Visit Codes: [id number] INP/OBS CARE(HIGH) ELVIS MENEZES MD Jan 04, 2025 13:23
--- NOTE | 2025-01-04 15:46 | DVH ---
PROCEDURE: MRI BRAIN HEAD WO CONTRAST INDICATION: TIA EXAM DATE: 01/04/2025 02:46 PM COMPARISON: CT HEAD WITHOUT CONTRAST on DOS: 01/03/25, BRAIN HEAD WO CONTRAST on DOS: 04/30/20, HEAD WITHOUT CONTRAST on DOS: 04/29/20 TECHNIQUE: MRI of the brain without intravenous contrast. FINDINGS: Diffusion weighted images of the brain demonstrate no evidence of acute infarction. There is no evidence of acute intracranial hemorrhage, extra-axial collection, mass effect, midline shift, herniation or hydrocephalus. Small old lacunar infarcts in the right basal ganglia. There are few scattered T2 signal hyperintensities in the periventricular white matter, nonspecific, likely related to chronic small-vessel ischemic disease. The ventricles, sulci and cisterns appear age appropriate. There are no signal abnormalities on the susceptibility weighted sequences. The major vascular flow voids are present. The visualized paranasal sinuses and mastoid air cells are clear. The surrounding soft tissues and osseous structures are unremarkable. IMPRESSION: No acute intracranial abnormality. Few scattered chronic small-vessel ischemic changes Old right basal ganglion lacunar infarcts.
[2025-01-04] MEDS ORDERED: LORazepam 0.5 MG TAB PO PRN (16:00)
[2025-01-04 16:17] LABS: Amphetamine Screen, Urine Neg (NEGATIVE); Barbiturate Scree,Urine Neg (NEGATIVE); Opiate Scree,Urine Neg (NEGATIVE); Phencyclidine Screen, Urine Neg (NEGATIVE)
[2025-01-04 16:18] LABS: Benzodiazephine Screen, Urine Neg (NEGATIVE); Cannabinoid Screen, Urine Neg (NEGATIVE); Cocaine Screen, Urine Neg (NEGATIVE)
--- NOTE | 2025-01-04 17:27 | DVH ---
PROCEDURE: MRI cervical spine without IV contrast. INDICATION: neck pain EXAM DATE: 01/04/2025 03:04 PM COMPARISON: US CAROTID DUPLX W COLOR DOP on DOS: 01/03/25, CAROTID DUPLX W COLOR DOP on DOS: 04/29/20, CERVICAL WITHOUT CONTRAST on DOS: 04/29/20 TECHNIQUE: MRI cervical spine without intravenous contrast. FINDINGS: No acute fracture or malalignment in the cervical spine. The bone marrow signal is unremarkable. The cervical medullary junction is unremarkable. The spinal cord is normal in caliber and signal characteristics. No spinal cord edema. Normal vertebral artery flow voids are noted. The soft tissues are unremarkable. C2-C3: Unremarkable. C3-C4: Unremarkable. C4-C5: Unremarkable. C5-C6: Unremarkable. C6-C7: Broad-base disc bulge and disc osteophyte complex which indents the ventral thecal sac. No cord compression. There is bilateral uncovertebral hypertrophy. Mild spinal canal stenosis. No foraminal stenoses. C7-T1: Unremarkable. IMPRESSION: Degenerative changes at C6-C7 with mild spinal canal stenosis. No cord compression or cord edema.
--- NOTE | 2025-01-04 21:31 | DVH ---
EXAM: MRI MRI NECK W OUT CONTRAST INDICATION: neck pain TECHNIQUE: Multiplanar, multisequence imaging of the cervical spine without contrast. COMPARISON: MRI CERVICAL WO CONTRAST on DOS: 01/04/25 FINDINGS: [ANATOMY]: Cervical lordosis is maintained. [BONES]: The vertebral bodies are normal in height, alignment, and marrow signal. [CERVICAL CORD]: The cervical cord is normal in signal and morphology. [DISCS]: Diffuse disc desiccation. disc herniations as detailed below [FACETS]: [id number] bilateral facet arthropathy of the cervical spine [OTHER]: There is no prevertebral soft tissue swelling. The visualized paraspinal soft tissues are normal. [C2-C3]: Unremarkable. [C3-C4]: Broad-based posterior disc protrusion measuring 2-3 mm with bilateral uncovertebral spurring. Trace ligamentum flavum buckling. [C4-C5]: 2 mm central disc protrusion with effacement of the ventral thecal sac [C5-C6]: Unremarkable. [C6-C7]: Mild intervertebral disc height loss with circumferential disc bulge and posterior disc osteophyte complex measuring 3 mm. Bilateral uncovertebral spurring. Contact with the ventral aspect of the cervical cord with slight anterior contour concavity [C7-T1]: Unremarkable. IMPRESSION: 1. Multilevel degenerative change of the cervical spine with disc herniations and uncovertebral spurring as detailed above. 2. No significant central canal narrowing. 3. No abnormal cervical cord signal. HS:Y
[2025-01-05 01:00] VITALS: BP 122/62; PULSE 61; RESP 18; TEMP 97.6; O2SAT 95
[2025-01-05 05:00] VITALS: BP 159/86; PULSE 70; RESP 18; TEMP 97.2; O2SAT 96
[2025-01-05 08:00] VITALS: PULSE 57; PULSE 60; RESP 20; O2SAT 95
[2025-01-05 09:00] VITALS: BP 128/75; PULSE 57; RESP 20; TEMP 97.9; O2SAT 95
[2025-01-05 10:00] VITALS: O2SAT 95
[2025-01-05] MEDS ORDERED: EZET-10 PO (11:04)
[2025-01-05] MEDS ORDERED: ASPI-543 PO (11:04)
[2025-01-05 11:45] VITALS: BP 128/75; PULSE 62; RESP 20; TEMP 98.8; O2SAT 95
--- NOTE | 2025-01-05 13:03 | DVHDS2 ---
Discharge Summary Date of Admission Jan 03, 2025 at 20:46 Date of Discharge: Jan 05, 2025 Labs/Diagnostic Data: Laboratory Results Test 01/04/25 03:49 01/03/25 21:57 01/03/25 14:14 01/03/25 13:38 White Blood Count 7.1 10^3/uL (4.4-10.8) Red Blood Count 3.95 10^6/uL (4.0-5.20) Hemoglobin 11.9 g/dL (12.2-16.2) Hematocrit 35.5 % (36.0-46.0) Mean Corpuscular Volume 89.8 fL (80.0-100.0) Mean Corpuscular Hemoglobin 30.2 pg (28.0-32.0) Mean Corpuscular Hemoglobin Concent 33.6 g/dL (32.0-36.0) Red Cell Distribution Width 14.6 % (11.8-14.3) Platelet Count 252 10^3/uL (140-450) Mean Platelet Volume 7.8 fL (6.9-10.8) Neutrophils (%) (Auto) 51.8 % (37.0-80.0) Lymphocytes (%) (Auto) 38.3 % (10.0-50.0) Monocytes (%) (Auto) 7.4 % (0.0-12.0) Eosinophils (%) (Auto) 1.9 % (0.0-7.0) Basophils (%) (Auto) 0.6 % (0.0-2.0) Neutrophils # (Auto) 3.7 10 ^3/uL (1.6-8.6) Lymphocytes # (Auto) 2.7 10 ^3/uL (0.4-5.4) Monocytes # (Auto) 0.5 10 ^3/uL (0-1.3) Eosinophils # (Auto) 0.1 10 ^3/uL (0-0.8) Basophils # (Auto) 0 10 ^3/uL (0-0.2) Nucleated Red Blood Cells 0.1 % Sodium Level 143 mmol/L (136-145) Potassium Level 3.8 mmol/L (3.5-5.1) Chloride Level 109 mmol/L (98-107) Carbon Dioxide Level 26 mmol/L (20-31) Anion Gap 8 (5-15) Blood Urea Nitrogen 12 mg/dL (9-23) Creatinine 0.75 mg/dL (0.550-1.02) Glomerular Filtration Rate Calc 85 mL/min (>90) BUN/Creatinine Ratio 16.0 (10.0-20.0) Serum Glucose 86 mg/dL (74-106) Calcium Level 9.4 mg/dL (8.7-10.4) Total Bilirubin 0.7 mg/dL (0.2-1.0) Aspartate Amino Transferase (AST) 15 U/L (13-40) Alanine Aminotransferase (ALT) 12 U/L (7-40) Alkaline Phosphatase 94 U/L (46-116) Total Protein 5.7 g/dL (5.7-8.2) Albumin 3.5 g/dL (3.2-4.8) POC Glucose 112 mg/dl (70-106) Urine Color Light-yellow (Yellow) Urine Clarity Clear (Clear) Urine pH 6.5 (5.0-9.0) Urine Specific [place] 1.010 (1.001-1.035) Urine Protein Negative (Negative) Urine Ketones Negative (Negative) Urine Blood Negative /uL (Negative) Urine Nitrite Negative (Negative) Urine Bilirubin Negative (Negative) Urine Urobilinogen Normal mg/dL (Negative) Urine Leukocyte Esterase Negative /uL (Negative) Urine RBC 1 /hpf (0 - 4) Urine Microscopic WBC 1 /HPF (0-5) Urine Squamous Epithelial Cells Few /hpf (<5) Urine Bacteria None seen /hpf (None Seen) Urine Glucose Normal mg/dL (Normal) Urine Opiates Screen Neg (NEGATIVE) Urine Fentanyl Screen Neg (NEGATIVE) Urine Barbiturates Screen Neg (NEGATIVE) Urine Phencyclidine Screen Neg (NEGATIVE) Urine Amphetamines Screen Neg (NEGATIVE) Urine Benzodiazepines Screen Neg (NEGATIVE) Urine Cocaine Screen Neg (NEGATIVE) Urine Cannabinoids Screen Neg (NEGATIVE) B-Type Natriuretic Peptide 18.99 pg/mL (0-100) Thyroid Stimulating Hormone (TSH) 2.16 uIU/mL (0.55-4.78) Test 01/03/25 13:10 Magnesium Level 2.0 mg/dL (1.6-2.6) Direct Bilirubin 0.1 mg/dL (<0.3) Other Laboratory Tests 01/04/25 03:49 Brief Hx & Hospital Course: 74-year-old female with a PMH of anxiety disorder, panic disorder, asthma, hypertension, hyperlipidemia, breast cancer (diagnosed in 2004, S/P partial mastectomy and radiation, tamoxifen for 5 years), possible TIA event, chronic pain syndrome, has come with chief complaints of numbness and weakness in the left side of her body. Patient reports that she has a herniated disc in her neck, mid and lower back, which causes usual tingling, but today while walking back to her home after feeding her chicken, she felt weakness in her left leg which began to wobble and was followed by warm flushing sensation of her entire body followed by chills, and numbness as well as weakness in the entire left side of the body. She states that she tried to ice her neck but the symptoms worsened and 0.5 Ativan calmed her a bit but the weakness repained for an hour. On inquiry, she reports this event to be different from the anxiety attacks she has had in the past. She denies any slurring of speech, drooping of face, Chest pain, shortness of breath, palpitations, or headache. On inquiry, patient states that she might have had a TIA event in the past, as she was told by her doctor via CT scan that she might have had some ischemic changes in the past. Vitals on admission were stable temp 97.8, HR 65, RR 22, BP 141/81 mmHg and SpO2 99% in room air. On initial evaluation, there was no drooping of the face, speech was clear, sensory motor examination was intact. CT head showed no intracranial hemorrhage/mass, old right basal ganglia lacunar infarcts; mild chronic microvascular ischemic changes. We are admitting the patient for further workup and management. Had MRI with chronic strokes Carotid US with no clots symptoms resolved Condition at Discharge: Good Final Diagnosis/Problems List TIA Discharge Disposition: Home Discharge Instruct/Medications Diet: Regular Activity: No Restrictions, As Tolerated Follow Up/Referral: PCP in 7 days Medications: ezetimibe, aspirin Scheduled Aspirin (Aspir-Low), 81 MG PO DAILY Cholecalciferol (Vitamin D3), 50,000 UNIT PO DAILY, (Reported) Ezetimibe (Ezetimibe), 10 MG PO DAILY Lisinopril (Lisinopril), 20 MG PO DAILY, (Reported) Magnesium Bisglycinate (Mag Glycinate), 240 MG PO DAILY, (Reported) Meloxicam (Meloxicam), 1 TAB PO DAILY, (Reported) Cros[place]-3 Fatty Acids (Crosby-3), 2,000 MG PO DAILY, (Reported) Theanine (L-Theanine), 2 CAP PO DAILY, (Reported) Scheduled PRN Lavender (Lavandula Angustifol (Calmaid), 2 CAP PO DAILY PRN for ANXIETY, (Reported) Lorazepam (Ativan Tablet), 0.5 TAB PO DAILY PRN for ANXIETY, (Reported) Methocarbamol (Methocarbamol), 250 MG PO DAILY PRN for FOR MUSCLE SPASM, (Reported) Discharge Statement: "Patient was advised to return to the ER or call 911 if any headaches, dizziness, shortness of breath, chest pain, abdominal pain, bleeding, fevers, or worsening of medical condition. Patient was counseled about treatment plan, medications, possible side effects, patientverbalized understanding. All questions were answered to the best of my ability. This discharge took greater then 30 minutes in planning, reviewing documentation, counseling the patient, and discussing with other team members." ASSESSMENT ASSESSMENT Assessment TIA Date of Service: Jan 05, 2025 Billing Provider: ELVIS MENEZES MD Common Visit Codes: 85502-AOB/OBS DISCH DAY >30min ELVIS MENEZES MD Jan 05, 2025 13:03
--- NOTE | 2025-01-05 19:03 | BSKYNEURO ---
Addendum fax Addendum added and electronically signed at 01/04/2025 23:45 () by Bret Pedroza MD [facility] # Demographics Consult Type: Acute Stroke Level 2 (4.5-24 hrs) Patient Location: Inpatient First Name: Syl Last Name: Lazaro Date of : 1950 Age: 74 Gender: Female Facility: [facility] Time of Initial Page (): 01/04/2025 23:32 First Contact with Site (): 01/04/2025 23:34 # HPI History: Has hx of herniated disc. Here with neck pain yesterday then felt a twitch in her neck then feeling tingling and weak in left side of her body. Then felt cold. Last Known Normal: 01/03 Duration: - resolved # Scores Time of exam and NIHSS (): 01/04/2025 23:41 Level of Consciousness 1a: [0] = Alert; keenly responsive LOC Questions 1b: [0] = Answers both questions correctly LOC Commands 1c: [0] = Performs both tasks correctly Best Gaze 2: [0] = Normal Visual 3: [0] = No visual loss Facial Palsy 4: [0] = Normal symmetrical movements Motor Arm Left 5a: [0] = No drift Motor Arm Right 5b: [0] = No drift Motor Leg Left 6a: [0] = No drift Motor Leg Right 6b: [0] = No drift Limb Ataxia 7: [0] = Absent Sensory 8: [0] = Normal Best Language 9: [0] = No aphasia Dysarthria 10: [0] = Normal Extinction and Inattention 11: [0] = No abnormality NIHSS Total: 0 # Exam Vitals: vital signs reviewed # Data Head CT: - no bleed - per radiologist read - preliminarily reviewed by me, please refer to radiology read for official re ading MRI: - no acute ischemia - per radiologist read # Assessment Impression: - Transient Ischemic Attack Differential Diagnosis: - Stroke Mimic # Plan Thrombolytic/Intervention: NOT IV Thrombolysis or IA Intervention candidate Thrombolytic Exclusion: > 4.5 hours Intraarterial Exclusion: - clinical exam not consistent with presence of large vessel occlusion (LVO), can reconsider if LVO found on vascular imaging Target Blood Pressure: SBP < 160 Labs: - hemoglobin A1c - lipid panel Imaging: (urgency: routine): - CT Angiogram Head and CT Angiogram Neck AND call back with results if abnormal assess for dissection or vertebral artery lesion Diagnostic Test: - echo without bubble study Therapy/Evaluation: - NPO until swallow evaluation - PT/OT evaluation - speech/swallow consultation Medication: - start statin with goal of LDL < 70 - aspirin 81 mg PO PLUS clopidogrel (Plavix) 75 mg PO daily for 21 days, then monotherapy thereafter Other: - If patient has any neurological deterioration please call me back immediately - telemetry monitoring - LDL < 70 # Logistics Attestation of consult completion: The patient is located at: [facility]. Facility staff participated in the visit. I performed this telemedicine visit from my offsite office utilizing interactive 2 way audio and visual telecommunication technology at the request of the onsite inpatient provider. Total time spent in telemedicine encounter: I spent 21 minutes reviewing clinical data and/or imaging, obtaining history, examining the patient, communicating with the onsite care team, and in preparation of this report. # Demographics First Name: Syl Last Name: Lazaro Facility: [facility] Electronically signed at 01/04/2025 23:45 (Hunt Time) by Bret Pedorza MD Yes ERICH PEDROZA MD Jan 05, 2025 19:03
--- NOTE | 2025-01-05 19:24 | DVHSR ---
APPROVED REPORT EXAM: Two-dimensional and M-mode echocardiogram with Doppler and color Doppler. Blood Pressure: 142/70 mmHg INDICATION Evaluate for any afib RISK FACTORS Obesity: Height: 5'3", Weight: 216 DIMENSIONS LVDd 4.8 (3.8-5.7cm) LA (2D) 3.1 (1.9-4.0cm) Aortic Root 4.0 (2.0-3.7cm) LVDs 3.0 (2.5-4.0cm) LA (MM) (1.9-4.0cm) Aortic Cusp Exc 1.8 (1.5-2.0cm) EF (%) 65.0 (55-70%) Rt. Atrium 3.5 (1.9-4.0cm) Asc. Aorta cm IVSd 1.0 (0.7-1.1cm) RV (D) (1.8-2.4cm) PWd 1.0 (0.7-1.1cm) Mitral Valve Mitral Mitral Stenosis E wave 0.68m/s MV Mean GR. mmHg A wave 0.91m/s MV Peak GR. mmHg E/A ratio 0.7 2D MVA cm2 DECEL Time 295ms PRESS 1/2 Time ms Aortic Valve Aortic Valve Aortic Stenosis V1 1.03m/s AO Mean GR. 3mmHg V2 1.25m/s AO Peak GR. 6mmHg LVOT Diameter 2.0 (1.8-2.4cm) Doppler MAISHA 2.59cm2 Pulmonic Valve V2 0.85m/s Tricuspid Valve TR Velocity 2.09m/s RVSP 20mmHg Other Information Quality : Rhythm : Bradycardia Technically limited study due to body habitus. Conclusion LV EF IS 65% NORMAL MV,TV AND PV CALCIFIED AORTIC VALVE NORMAL RV FUNCTION NO EFFUSION
== END 2025-01-05 12:47 | disposition home or self-care (01) | DRG 69 ==
LOC: EDUNIT# 12:21 → EDBD 12:21 → ER 12:21 → OVERFLOW 20:46 → TELE-WESTW 01-04 18:38
PROVIDERS: ATTEND Psychiatry & Neurology Neurocritical Care
DX: G45.9 Transient cerebral ischemic attack, unspecified (principal); E66.01 Morbid (severe) obesity due to excess calories; J45.909 Unspecified asthma, uncomplicated; I11.9 Hypertensive heart disease without heart failure; K21.9 Gastro-esophageal reflux disease without esophagitis; M54.9 Dorsalgia, unspecified; F41.0 Panic disorder [episodic paroxysmal anxiety]; Z68.38 Body mass index [BMI] 38.0-38.9, adult; G89.4 Chronic pain syndrome; E78.5 Hyperlipidemia, unspecified; F41.9 Anxiety disorder, unspecified; Z85.3 Personal history of malignant neoplasm of breast; Z86.73 Personal history of transient ischemic attack (TIA), and cerebral infarction without residual deficits
CPT/HCPCS: 36415; 70450; 70547; 70551; 71045; 72141; 80048; 80053; 80076; 80307; 81001; 82962; 83735; 83880; 84443; 85025; 93306; 93886; 97163; G0378